=== PATIENT | female | born 1975 | race African-American/Black ===

== ENCOUNTER 2018-05-08 06:35 | Day surgery (SDC) | payer BC ==
[~2018-05-08] VITALS: Ht 167.6 cm; Wt 59.0 kg
[2018-05-08] VITALS (11 sets, daily range): BP systolic 88–116; BP diastolic 47–78
[~2018-05-08 06:35] MED LIST: iron PO
[2018-05-08] MEDS ORDERED: Dexamethasone 4mg/ml vial ONE (06:58)
[2018-05-08] MEDS ORDERED: cefOXitin Sod 2 GM in D5W 110 ML IVPB SCH (07:00)
[2018-05-08] MEDS ORDERED: Lidocaine 1% MPF 10mg/ml 5ml ONE (07:02)
[2018-05-08] MEDS ORDERED: Propofol 200mg/20ml IV ONE (07:02)
[2018-05-08] MEDS ORDERED: Midazolam 2mg/2ml Inj ONE (07:02)
[2018-05-08] MEDS ORDERED: fentaNYL 100 mcg/2 mL IV ONE ×3 (07:02→10:33)
[2018-05-08] MEDS ORDERED: Bupivacaine 0.5% Inj 30 ml vial INJ ONE (07:05)
[2018-05-08] MEDS ORDERED: Ropivacaine 5mg/ml Vial 30ml INJ ONE (07:06)
[2018-05-08] MEDS ORDERED: cefOXitin 2gm Inj ONE (07:08)
[2018-05-08] MEDS ORDERED: Zemuron 50mg/5ml Inj IV ONE (07:08)
--- NOTE | 2018-05-08 07:43 | Anethesia Preoperative Eval ---
Anesthesia Pre-op PMH/ROS General Date of Evaluation: May 08, 2018 Time of Evaluation: 07:15 Anesthesiologist: ASA Score: ASA 3 Mallampati Score Class I : Soft palate, uvula, fauces, pillars visible Class II: Soft palate, uvula, fauces visible Class III: Soft palate, base of uvula visible Class IV: Only hard plate visible Mallampati Classification: Class I Surgeon: randolph Diagnosis: uterine fibroids Surgical Procedure: open abdominal myomectomy Anesthesia History: other - seizure in dental office asso w/ local anesthesia and epinephrine Allergies: Coded Allergies: IODINE (Verified Allergy, Intermediate, swelling; hives, 05/07/18) IBUPROFEN (Verified Allergy, Unknown, HIVES; SWELLING, 05/07/18) LIDOCAINE (Verified Allergy, Unknown, 05/06/18) EPINEPHRINE (Verified Adverse Reaction, Intermediate, SEIZURE, 05/07/18) Past Medical History Cardiovascular: Denies: HTN, CAD, [place], valve dz, arrhythmia, other Pulmonary: Denies: asthma, COPD, [place], other Gastrointestinal/Genitourinary: Denies: GERD, CRI, ESRD, other Neurologic/Psychiatric: Reports: other - seizure ; Denies: dementia, CVA, depression/anxiety, TIA Endocrine: Denies: DM, hypothyroidism, steroids, other HEENT: Denies: cataract (L), cataract (R), glaucoma, CADDO (L), CADDO (R), other Hematology/Immune: Denies: anemia, DVT, bleeding disorder, other Musculoskeletal/Integumentary: Denies: OA, RA, DJD, DDD, edema, other Anesthesia Pre-op Phys. Exam Physician Exam Last Vital Signs Date Time Temp Pulse Resp B/P (MAP) Pulse Ox O2 Delivery O2 Flow Rate FiO2 05/08/18 07:15 97.8 67 18 112/78 98 Room Air 97.8 Constitutional: NAD Cardiovascular: RRR Respiratory: CTA Gastrointestinal: S/NT/ND Airway Exam Mallampati Score: Class I MO: full ROM: full Teeth: intact Dentures: no upper, no lower Anesthesia Pre-op A/P Labs Urine Test Test 05/08/18 06:45 Urine HCG, Qualitative Negative (NEGATIVE) Risk Assessment & Plan Assessment: asa 3 Plan: ETGA Status Change Before Surgery: No Pre-Antibiotics Drug: cefoxitin 2 grams Given Within 1 Hr of Incision: Yes Monica Amato M.D. May 08, 2018 07:43
[2018-05-08] MEDS ORDERED: Acetaminophen (Non formulary) 100 ML IV ONE (07:45)
[2018-05-08] MEDS ORDERED: LR 1000ml 1,000 ML IVLG SCH (07:47)
--- NOTE | 2018-05-08 07:55 | Pre-Procedure Note/Attestation ---
Pre-Procedure Note/Attestation Complete Prior to Procedure Planned Procedure: not applicable Procedure Narrative: hysteroscopy, myomectomy Indications for Procedure Pre-Operative Diagnosis: symptomatic fibroids Attestation I attest that I discussed the nature of the procedure; its benefits; risks and complications; and alternatives (and the risks and benefits of such alternatives ), prior to the procedure, with the patient (or the patient's legal sales representative jewelry). I attest that, if there was a reasonable possibility of needing a blood transfusion, the patient (or the patient's legal sales representative jewelry) was given the [facility] standardized written summary, pursuant to the [place] Blood Safety Act ([place] Health and Safety Code # 1645, as amended). I attest that I re-evaluated the patient just prior to the surgery and that there has been no change in the patient's H&P, except as documented below: SUREKHA BARAHONA May 08, 2018 07:55
[2018-05-08] MEDS ORDERED: PCA Education Pamphlet MISC ONE ×2 (08:00)
[2018-05-08] MEDS ORDERED: DiphenhydrAMINE 50mg/ml Inj IVP PRN ×3 (08:00)
[2018-05-08] MEDS ORDERED: Hydromorphone 0.5mg/0.5ml inj IVP PRN (08:00)
[2018-05-08] MEDS ORDERED: Metoclopramide 10mg/2ml Inj IVP PRN ×2 (08:00)
[2018-05-08] MEDS ORDERED: Naloxone 0.4mg/ml Inj IVP PRN (08:00)
[2018-05-08] MEDS ORDERED: LR 1000ml ONE (08:00)
[2018-05-08] MEDS ORDERED: Midazolam 2mg/2ml Inj IVP PRN (08:00)
[2018-05-08] MEDS ORDERED: Rate Change PCA 1 Each MISC PRN ×2 (08:00)
[2018-05-08] MEDS ORDERED: fentaNYL 100 mcg/2 mL IV PRN (08:00)
[2018-05-08] MEDS ORDERED: Interceed TOPIC ONE (09:23)
[2018-05-08] MEDS ORDERED: ProvayBlue 5mg/ml 10ml amp INJ ONE (09:30)
[2018-05-08] MEDS ORDERED: Ketorolac 30mg Inj ONE (09:54)
--- NOTE | 2018-05-08 10:14 | Brief Operative Note ---
Immediate Post Operative Note Operative Note Pre-op Diagnosis: symptomatic fibroids Post-op Diagnosis: same as pre-op Surgeon: randolph Mortar Mixer Operator: cindy Anesthesiologist: Anesthesia: general Specimen: yes Complications: none Condition: stable Fluids: crystalloid Estimated Blood Loss: minimal Implant(s) used?: Yes SUREKHA BARAHONA May 08, 2018 10:14
[2018-05-08] MEDS ORDERED: Glycopyrrolate 0.2mg/ml 1ml Vial ONE (10:15)
[2018-05-08] MEDS ORDERED: Neostigmine 1mg/ml 10ml Inj ONE (10:15)
--- NOTE | 2018-05-08 10:45 | Immediate Post-Op Evaluation ---
Immediate Post-Op Evalulation Immediate Post-Op Evalulation Procedure: open abdominal myomectomy. hysteroscopy Date of Evaluation: May 08, 2018 Time of Evaluation: 10:23 IV Fluids: LR 900 ml Blood Products: 0 Estimated Blood Loss: 25ml Urinary Output: 200 Blood Pressure Systolic: 106 Blood Pressure Diastolic: 74 Pulse Rate: 73 Respiratory Rate: 22 O2 Sat by Pulse Oximetry: 100 Temperature (Fahrenheit): 97.8 Pain Score (1-10): 7 treated with fentanyl and toradol Nausea: No Vomiting: No Complications none Patient Status: awake, none Drug: cefoxitin Given Within 1 Hr of Incision: Yes Time Given: 08:10 Monica Amato M.D. May 08, 2018 10:45
[2018-05-08] MEDS: PCA Morphine 1mg/ml 30 ML IV PRN ×2 (11:30→22:58)
[2018-05-08] MEDS ORDERED: Morphine Sulfate 4mg/ml Inj IVP PRN ×2 (12:00)
[2018-05-08] MEDS ORDERED: Morphine Sulfate 4mg/ml Inj SUBQ PRN (12:00)
[2018-05-08] MEDS ORDERED: Morphine Sulfate 2mg/ml Inj IVP PRN (12:00)
[2018-05-08] MEDS: D5 1/2NS 1,000 ML IV SCH (13:28)
--- NOTE | 2018-05-08 16:19 | 48 Hour Post Anesthesia Eval ---
Post Anesthesia Evaluation Procedure: open abdominal myomectomy. hysteroscopy Date of Evaluation: May 08, 2018 Time of Evaluation: 16:18 Blood Pressure Systolic: 98 0: 58 Pulse Rate: 56 Respiratory Rate: 19 Temperature (Fahrenheit): 98 O2 Sat by Pulse Oximetry: 100 Airway: patent Nausea: No Vomiting: No Pain Intensity: 4 Hydration Status: adequate Cardiopulmonary Status: Stable Mental Status/LOC: patient returned to baseline Follow-up Care/Observations: 0 Post-Anesthesia Complications: 0 Follow-up care needed: N/A Evangelista Funez MD May 08, 2018 16:19
[2018-05-08] MEDS: PCA shift volume MISC SCH (19:00)
[2018-05-08] MEDS ORDERED: PCA shift volume MISC SCH (19:00)
--- NOTE | 2018-05-08 19:14 | 48 Hour Post Anesthesia Eval ---
Post Anesthesia Evaluation Procedure: open abdominal myomectomy. hysteroscopy Date of Evaluation: May 08, 2018 Time of Evaluation: 16:00 Blood Pressure Systolic: 98 0: 58 Pulse Rate: 56 Respiratory Rate: 18 Temperature (Fahrenheit): 98 O2 Sat by Pulse Oximetry: 100 Airway: patent Nausea: No Vomiting: No Pain Intensity: 0 Hydration Status: adequate Mental Status/LOC: patient returned to baseline Post-Anesthesia Complications: none Follow-up care needed: N/A Monica Amato M.D. May 08, 2018 19:14
[2018-05-09] VITALS: BP 99/50
[2018-05-09] MEDS: D5 1/2NS 1,000 ML IV SCH ×3 (00:04→17:52)
[2018-05-09 04:00] VITALS: BP 99/53
[2018-05-09] MEDS: PCA shift volume MISC SCH (07:08)
[2018-05-09 08:00] VITALS: BP 87/58
--- NOTE | 2018-05-09 10:47 | General Surgery Progress Note ---
General Surgery-Progress Note Subjective Procedure Performed s/p myomectomy Symptoms: pain same, tolerating diet, passing flatus - voiding and able to ambulate Objective Last 24 Hour Vital Signs Date Time Temp Pulse Resp B/P (MAP) Pulse Ox O2 Delivery O2 Flow Rate FiO2 05/09/18 04:00 97.3 55 16 99/53 100 Room Air 97.3 05/09/18 04:00 18 05/09/18 00:00 18 05/09/18 00:00 97.4 55 16 99/50 98 Room Air 97.4 05/08/18 20:00 18 05/08/18 20:00 98.2 48 16 102/53 100 Room Air 98.2 05/08/18 19:14 208.4 56 18 100 05/08/18 16:19 208.4 56 19 100 05/08/18 16:00 98.0 56 19 98/58 100 Nasal Cannula 3.0 98.0 05/08/18 16:00 18 05/08/18 13:20 18 05/08/18 12:50 17 05/08/18 12:20 18 05/08/18 12:10 98.1 59 18 97/60 100 Nasal Cannula 3.0 98.1 05/08/18 12:05 18 05/08/18 11:30 98.0 56 18 94/53 100 Nasal Cannula 3.0 98.0 05/08/18 11:30 18 05/08/18 11:15 52 18 92/47 100 Nasal Cannula 3.0 05/08/18 11:00 59 18 88/50 100 Nasal Cannula 3.0 05/08/18 10:45 54 22 96/51 100 Nasal Cannula 3.0 05/08/18 10:45 208.0 73 22 100 I&O Intake and Output 05/08/18 05/09/18 19:00 07:00 Intake Total 1800 ml 840 ml Output Total 225 ml 550 ml Balance 1575 ml 290 ml Intake Oral 240 ml IV Total 1800 ml 600 ml Output Urine Total 200 ml 550 ml Estimated Blood Loss 25 ml # Voids 1 3 Dressing: dry Wound: clean, dry, intact Drains: none Cardiovascular: RSR Respiratory: clear Abdomen: soft, flat, tenderness - tenderness/ not cotrolled with oral med Extremities: no edema cbc ordered Assessment Post-op Diagnosis s/p myomectomy Additional Comments patient's pain not well controlled with po meds// nees IV toradol and possibly morpine/ con't tolerate Motrin Plan Additional Comments keep patient until tomorrow CBC SUREKHA BARAHONA May 09, 2018 10:47
--- NOTE | 2018-05-09 10:54 | Discharge Summary ---
Discharge Summary Hospital Course Date of Admission May 08, 2018 at 12:48 Date of Discharge may 10, 2018 Admitting Diagnosis s/p myomectomy/ HPI Ana Maria Hutton is a 42 year old female who was admitted on May 08, 2018 at 12:48 for Uterine Fibroid Procedures myomectomy Hospital Course voided/ passed flatus tolerated regular diet Discharge Discharge Disposition Patient was discharged to SUREKHA BARAHONA May 09, 2018 10:54
[2018-05-09] MEDS: Ketorolac 30mg Inj IV SCH ×3 (10:58→22:33)
[2018-05-09 12:00] VITALS: BP 111/53
[2018-05-09] MEDS: oxyCODONE HCL/Acetaminophen 5/325mg ORAL PRN ×2 (13:36→20:06)
[2018-05-09 14:02] LABS: BASOPHILS % (AUTO) 0.5 % (0.0-2.0); EOSINOPHILS % (AUTO) 0.4 % (0.0-3.0); HEMATOCRIT 33.6 % (37.0-47.0); HEMOGLOBIN 11.3 G/DL (12.0-16.0); LYMPHOCYTES % (AUTO) 25.3 % (20.0-45.0); MEAN CORPUSCULAR VOLUME 90 FL (80-99); MONOCYTES % (AUTO) 6.6 % (1.0-10.0); NEUTROPHILS % (AUTO) 67.3 % (45.0-75.0); PLATELET COUNT 175 K/UL (150-450); RED BLOOD COUNT 3.73 M/UL (4.20-5.40); RED CELL DISTRIBUTION WIDTH 11.5 % (11.6-14.8); WHITE BLOOD COUNT 9.2 K/UL (4.8-10.8)
[2018-05-09 16:00] VITALS: BP 101/55
--- NOTE | 2018-05-09 19:15 | Operative Note - Dictated ---
DATE OF OPERATION: 05/09/2018 PREOPERATIVE DIAGNOSIS: Symptomatic uterine fibroids. POSTOPERATIVE DIAGNOSIS: Symptomatic uterine fibroids. PROCEDURE: Hysteroscopy and myomectomy. ANESTHESIA: General endotracheal. SURGEON: Kesha Thibodeaux M.D. [employer] OFFICER: Tiffanie Ramirez M.D. ANESTHESIOLOGIST: Monica Amato M.D. FLUIDS: Crystalloid. URINE OUTPUT: 200 mL clear urine. ESTIMATED BLOOD LOSS: 50 mL. PROCEDURE IN DETAIL: After ensuring informed consent, the patient was taken to the operating room where general anesthesia was induced. The patient was sterilely prepped and draped. Weighted speculum was placed in the vagina. Cervix was dilated to an 8 Hegar dilator. Hysteroscope was placed inside the uterine cavity. Uterine cavity appeared to be within normal limits and there were no submucosal fibroids. [place] of both tubes were observed. Next, attention was turned to the abdomen where a 5 cm incision was made, carried down to the level of the fascia with the Bovie, fascia was nicked in the midline, and incision was extended laterally. Fascia was tented up and both bluntly and sharply dissected off of the underlying rectus muscles. An incision was made in the peritoneum. Peritoneum was entered sharply. Incision was extended. Uterine serosa was opened up posterior. Approximately 5 cm fibroid was removed. Next, there were 3 more fibroids that were smaller that were intramural fundally and right lateral that were also removed. All incisions were closed with 0 Vicryl. Next, chromopertubation was performed, namely 2 mL of methylene blue and 100 mL of water, and both tubes appeared normal. Only the left tube actually chromopertubated , but that may be due to technical difficulties. Both ovaries appeared within normal limits. Next, Interceed adhesion barrier was placed over the uterine incision. Next, the peritoneum was sutured with 2-0 Vicryl. Fascia was sutured with 0 Vicryl. Subcutaneous tissue was closed with 3-0 plain. Skin was closed with 3-0 Monocryl on a Jorge needle. Steri-Strips were placed over the incision. The HUMI manipulator was removed from the vagina. At the end of the procedure, all instrument and lap counts were correct x2. The patient was taken to the recovery area extubated and in stable condition. Kesha Thibodeaux M.D. DR: SIVA JOB#: [id number] CC:
[2018-05-09 20:00] VITALS: BP 115/66
[2018-05-10] VITALS: BP 109/61
[2018-05-10 04:00] VITALS: BP 110/69
[2018-05-10] MEDS: Ketorolac 30mg Inj IV SCH ×2 (05:24→11:55)
[2018-05-10 08:00] VITALS: BP 96/57
[2018-05-10] MEDS ORDERED: Norco 5mg/325mg tab ORAL PRN (11:00)
[2018-05-10] MEDS ORDERED: Tylenol #3 tab (300mg/30mg) ORAL PRN (11:00)
[2018-05-10 12:00] VITALS: BP 109/64
[2018-05-10] MEDS ORDERED: D5 1/2NS 1000ml IV ONE (16:32)
== END 2018-05-10 16:33 | disposition home or self-care (01) ==
LOC: SDS 06:35 → EDSTATUS 07:30 → 3E 12:48
DX: D25.9 Leiomyoma of uterus, unspecified (principal); Z80.41 Family history of malignant neoplasm of ovary; Z80.1 Family history of malignant neoplasm of trachea, bronchus and lung; Z80.3 Family history of malignant neoplasm of breast; Z80.0 Family history of malignant neoplasm of digestive organs
CPT/HCPCS: 36415; 58545; 58558; 81025; 85025; 86850; 86900; 86901; 87081; 96360; 96361; 96374; 96375; J0694; J1100; J1885; J2250; J2270; J2405; J2704; J2710; J2765; J3010; J3490; J7120; Q9968; S0028